=== PATIENT | female | born 1970 | race Caucasian/White ===

== ENCOUNTER → 2017-05-06 14:21 | Emergency (ER) | payer SELFPAY ==
[2017-05-06 14:42] VITALS: BP 126/70
--- NOTE | 2017-05-25 13:21 | ED ---
HPI Chest Pain - HPI Summary HPI Summary: Pt here w/ Rt sided chest pain, just under clavicle/into upper chest area. Started this morning. Worse w/ deep breath and with certain movements of chest wall/Rt arm but can't describe as it's inconsistent. Denies pain radiating from this area, nausea, vomiting, dizziness, neck/jaw pain, sweating, fatigue, cough , bloody cough, fever. No injury to the area however admits she has had issues with the muscles in this area when she gets stressed and has been stressed as of late. Also cares for her granddaughter who is young/small enough to lift/ carry - possibly contributing factor. Smokes. Possible hormone therapy? No recent travel/trauma/history of cancer. Concerned about PE/clot. - History of Current Complaint Chief Complaint: EDChestWallPain Time Seen by Provider: 05/06/17 16:23 Hx Obtained From: Patient Pain Intensity: 9 - Allergy/Home Medications Allergies/Adverse Reactions: Allergies Allergy/AdvReac Type Severity Reaction Status Date / Time No Known Allergies Allergy Verified 05/06/17 14:42 PMH/Surg Hx/FS Hx/Imm Hx Previously Healthy: Yes Endocrine/Hematology History: Denies: Hx Anticoagulant Therapy, Hx Blood Disorders, Hx Diabetes, Hx Systemic Lupus Erythematosus, Hx Thyroid Disease, Hx Coagulopothy Cardiovascular History: Denies: Hx Congestive Heart Failure, Hx Coronary Artery Disease, Hx Hypertension History: Denies: Hx Dialysis, Hx Renal Disease Musculoskeletal History: Denies: Hx Rheumatoid Arthritis - Cancer History Hx Chemotherapy: No - Surgical History Surgery Procedure, Year, and Place: hysterectomy and bladder repair - Immunization History Immunizations Up to Date: Yes Infectious Disease History: No Infectious Disease History: Denies: Traveled Outside the [place] in Last 30 Days - Social History Occupation: Employed Full-time Lives: With Family Alcohol Use: Occasionally Hx Substance Use: No Substance Use Type: Reports: None Hx Tobacco Use: Yes Smoking Status (MU): Current Every Day Smoker Review of Systems Negative: Fever Eyes: Negative ENT: Negative Positive: Chest Pain. Negative: Palpitations Respiratory: Negative Negative: Shortness Of Breath, Cough Gastrointestinal: Negative Positive: no symptoms reported Musculoskeletal: Other - pain around clavicle Skin: Negative Neurological: Negative Positive: Anxious All Other Systems Reviewed And Are Negative: Yes Physical Exam Triage Information Reviewed: Yes Vital Signs On Initial Exam: Initial Vitals Temp Pulse Resp BP Pulse Ox 96.9 F 60 17 126/70 96 05/06/17 14:39 05/06/17 14:39 05/06/17 14:39 05/06/17 14:39 05/06/17 14:39 Vital Signs Reviewed: Yes Appearance: Positive: Well-Appearing - concerned, No Pain Distress, Well- Nourished Skin: Positive: Warm, Skin Color Reflects Adequate Perfusion, Dry - no erythema , no ecchymosis, no lesions over affected area Head/Face: Positive: Normal Head/Face Inspection Eyes: Positive: Normal, EOMI, Conjunctiva Clear ENT: Positive: Normal ENT inspection, Hearing grossly normal, Pharynx normal - mucosa moist Neck: Positive: Supple, Nontender, No Lymphadenopathy Respiratory/Lung Sounds: Positive: Clear to Auscultation, Breath Sounds Present. Negative: Rales, Rhonchi, Subcutaneous Emphysema, Stridor, Tracheal Deviation, Wheezes, Unable to speak in full sentences, Fatigue Cardiovascular: Positive: Normal, RRR, Pulses are Symmetrical in both Upper and Lower Extremities, Leg Edema Right - (-) Melly's B/L, S1, S2. Negative: Murmur , Rub - no bruits, Leg Edema Left Abdomen Description: Positive: Nontender, Soft Bowel Sounds: Positive: Present Musculoskeletal: Positive: Strength/ROM Intact, Pain @ - Rt pectoralis, just inferior to Rt clavicle Neurological: Positive: Normal, Sensory/Motor Intact, Alert, Oriented to Person Place, Time, CN Intact II-III Psychiatric: Positive: Anxious - but cooperative Diagnostics - Vital Signs Vital Signs Temp Pulse Resp BP Pulse Ox 05/06/17 14:39 96.9 F 60 17 126/70 96 - Laboratory Lab Statement: Any lab studies that have been ordered have been reviewed, and results considered in the medical decision making process. Chest Pain Course/Dx - Course Course Of Treatment: Pt presents w/ Rt pectoralis/periclavicle pain. Admits she' s had this before with stress however is concerned about clot this time. She does admit to smoking and possible hormone therapy. Discussed course of w/u w/ pt who agrees w/ plan however when staff returned to her to initiate tests, etc , pt had left. No explanation provided. She was aware of possible conditions and their ill effects if they progressed as this was discussed as part of the w/ u process. If she returns, would reinitiate w/u unless new information was presented. - Diagnoses Provider Diagnoses: Chest pain Discharge - Sign-Out/Discharge Documenting (check all that apply): Discharge - Discharge Plan Condition: Good Disposition: AGAINST MEDICAL ADVICE Discharge Disposition Comment: Left in the middle of medical work up - Billing Disposition and Condition Condition: GOOD Disposition: AMA
== END | disposition home or self-care (01) ==
LOC: ED 14:21
DX: R07.89 Other chest pain (principal); F17.210 Nicotine dependence, cigarettes, uncomplicated; F41.9 Anxiety disorder, unspecified
CPT/HCPCS: 99282